=== PATIENT | female | born 1990 | race Caucasian/White ===

== ENCOUNTER → 2018-03-02 | Outpatient (CLI) | payer OTHER ==
[~2018-03-02] MED LIST: ABAT250V; BCP; CITA20 PO; CYCL10 PO; DOXY100 PO; ESOM20; FLUO10 PO; HYDACE5 PO; IBUP600 PO; IBUP800 PO; LABE100 PO; ORTHOTRYCYCLINE; OXYACE5T PO; PANT20 PO; Pepto-Bism525 MG/15; Prilosec Otc20 MG; RXPROACE PO; SERT50 PO; Verotin-Gr Cap1 EACH PO; [UNRECOGNIZED DRUG - REMARK]
== END | disposition home or self-care (01) ==
LOC: LAB 15:48 → LAB SHORT 15:48
DX: R30.0 Dysuria (principal)
CPT/HCPCS: 87086

== ENCOUNTER 2018-07-25 17:42 | Emergency (ER) | payer OTHER, BC, SELFPAY ==
[~2018-07-25] VITALS: Ht 167.6 cm; Wt 72.6 kg
[2018-07-25] MEDS ORDERED: Robaxin500 MG PO (18:42)
== END 2018-07-25 18:45 | disposition home or self-care (01) ==
LOC: ER 17:42
DX: M54.2 Cervicalgia (principal); F41.9 Anxiety disorder, unspecified; Z79.899 Other long term (current) drug therapy; V43.52XA Car driver injured in collision with other type car in traffic accident, initial encounter
CPT/HCPCS: 72040; 99284-25

== ENCOUNTER → 2019-07-22 | Outpatient (CLI) | payer BC, OTHER ==
[~2019-07-22] MED LIST changes: +Robaxin500 MG PO
[2019-07-22 17:24] LABS: BASOPHILS ABSOLUTE AUTO 0.02 K/mm3 (0.00-0.23); BASOPHILS PERCENT AUTO 0 % (0-2); EOSINOPHILS PERCENT AUTO 2 % (0-6); Hematocrit 44.6 % (33.0-51.0); Hemoglobin 14.5 g/dL (11.5-16.0); IMMATURE GRAN ABSOLUTE AUTO 0.02 K/mm3 (0.00-0.10); IMMATURE GRAN PERCENT AUTO 0 % (0-1); LYMPHOCYTES ABSOLUTE AUTO 0.84 K/mm3 (0.84-5.20); LYMPHOCYTES PERCENT AUTO 13 % (21-46); MONOCYTES ABSOLUTE AUTO 0.43 K/mm3 (0.16-1.47); MONOCYTES PERCENT AUTO 7 % (4-13); Mean Corpuscular HGB 29.1 pg (26.0-34.0); Mean Corpuscular HGB Conc 32.5 g/dL (31.5-36.5); Mean Corpuscular Volume 90 fL (80-100); Mean Platelet Volume 11.9 fL (9.1-12.4); NEUTROPHILS ABSOLUTE AUTO 4.84 K/mm3 (1.96-9.15); NEUTROPHILS PERCENT AUTO 78 % (41-73); Platelet Count 238 K/mm3 (150-400); RDW Coefficient Variation 13.5 % (11.7-14.2); Red Blood Cell Count 4.98 M/mm3 (3.80-5.20); White Blood Cell Count 6.25 K/mm3 (4.00-11.30)
[2019-07-22 17:49] LABS: Alanine Aminotransfer (ALT/SGP 24 U/L (12-78); Albumin, Blood 3.6 g/dL (3.4-5.0); Albumin/Globulin Ratio 0.9 (0.8-1.8); Alk Phos 55 U/L (50-136); Anion Gap 3 mmol/L (6-16); Aspartate Aminotrans (AST/SGOT 19 U/L (12-37); Bilirubin, Total 0.4 mg/dL (0.1-1.0); Blood Urea Nitrogen 10 mg/dL (8-24); Bun/Creatinine Ratio 13.7 (12.0-20.0); CO2, Blood 26 mmol/L (21-32); Calcium, Blood 9.2 mg/dL (8.5-10.1); Chloride, Blood 108 mmol/L (98-108); Creatinine, Blood 0.73 mg/dL (0.40-1.00); Globulin, Blood 3.9 g/dL (2.2-4.0); Glomerular Filtration Rate >60 (60-); Glucose, Blood 77 mg/dL (70-99); Potassium, Blood 3.6 mmol/L (3.5-5.5); Sodium, Blood 137 mmol/L (136-145); Total Protein, Blood 7.5 g/dL (6.4-8.2)
== END | disposition home or self-care (01) ==
LOC: LAB 17:00 → LAB SHORT 17:00
PROVIDERS: Nurse Practitioner
DX: R10.9 Unspecified abdominal pain (principal)
CPT/HCPCS: 80053; 83690; 85025

== ENCOUNTER → 2019-10-18 | Outpatient (CLI) | payer BC, OTHER | END | disposition home or self-care (01) | LOC: LAB SHORT 16:30 → LAB 16:30 | PROVIDERS: Obstetrics & Gynecology | DX: Z01.419 Encounter for gynecological examination (general) (routine) without abnormal findings (principal) | CPT/HCPCS: G0123 ==

== ENCOUNTER → 2019-10-19 | Outpatient (CLI) | payer BC, OTHER ==
[2019-12-28 11:42] LABS: DIAGNOSIS: SEE LABOUT RESULTS
== END | disposition home or self-care (01) ==
LOC: LAB SHORT 13:10 → LAB 13:10
PROVIDERS: Obstetrics & Gynecology
DX: Z01.419 Encounter for gynecological examination (general) (routine) without abnormal findings (principal)
CPT/HCPCS: G0123

== ENCOUNTER → 2021-01-07 | Outpatient (CLI) | payer BC ==
[2021-01-09 13:11] LABS: HPV 16 Negative (Negative); HPV 18 Negative (Negative); HPV OTHER HR TYPES Negative (Negative)
== END | disposition home or self-care (01) ==
LOC: LAB 16:42 → LAB SHORT 16:42
PROVIDERS: Obstetrics & Gynecology
DX: R87.610 Atypical squamous cells of undetermined significance on cytologic smear of cervix (ASC-US) (principal)
CPT/HCPCS: 87624; 88142

== ENCOUNTER → 2021-05-22 | Outpatient (CLI) | payer BC, OTHER | END | disposition home or self-care (01) | LOC: LAB SHORT 18:30 | DX: R21 Rash and other nonspecific skin eruption (principal) | CPT/HCPCS: 87070 ==

== ENCOUNTER 2022-12-23 07:52 | Inpatient (IN) | payer BC ==
[~2022-12-23] VITALS: Ht 167.6 cm; Wt 70.5 kg
[2022-12-23] VITALS (32 sets, daily range): BP systolic 81–160; BP diastolic 47–95
[2022-12-23] MEDS ORDERED: BUPR100 PO (08:46)
[2022-12-23 09:00] LABS: BASOPHILS ABSOLUTE AUTO 0.02 K/mm3 (0.00-0.23); BASOPHILS PERCENT AUTO 0 % (0-2); EOSINOPHILS ABSOLUTE AUTO 0.12 K/mm3 (0.00-0.68); EOSINOPHILS PERCENT AUTO 1 % (0-6); Hematocrit 36.8 % (33.0-51.0); Hemoglobin 12.5 g/dL (11.5-16.0); IMMATURE GRAN ABSOLUTE AUTO 0.04 K/mm3 (0.00-0.10); IMMATURE GRAN PERCENT AUTO 1 % (0-1); LYMPHOCYTES ABSOLUTE AUTO 1.32 K/mm3 (0.84-5.20); LYMPHOCYTES PERCENT AUTO 15 % (21-46); MONOCYTES ABSOLUTE AUTO 0.61 K/mm3 (0.16-1.47); MONOCYTES PERCENT AUTO 7 % (4-13); Mean Corpuscular HGB 29.2 pg (26.0-34.0); Mean Corpuscular Volume 86 fL (80-100); Mean Platelet Volume 12.4 fL (9.1-12.4); NEUTROPHILS PERCENT AUTO 76 % (41-73); Platelet Count 202 K/mm3 (150-400); RDW Coefficient Variation 13.4 % (11.7-14.2); RDW Standard Deviation 41.3 fL (35.1-46.3); Red Blood Cell Count 4.28 M/mm3 (3.80-5.20); White Blood Cell Count 8.81 K/mm3 (4.00-11.30)
--- NOTE | 2022-12-23 16:22 | NUR ---
LEFT LEG STILL NUMB, PT CANNOT LIFT UP OFF BED.
[2022-12-24 03:08] VITALS: BP 111/64
[2022-12-24 06:07] LABS: BASOPHILS ABSOLUTE AUTO 0.02 K/mm3 (0.00-0.23); BASOPHILS PERCENT AUTO 0 % (0-2); EOSINOPHILS ABSOLUTE AUTO 0.15 K/mm3 (0.00-0.68); EOSINOPHILS PERCENT AUTO 2 % (0-6); Hematocrit 31.8 % (33.0-51.0); Hemoglobin 10.4 g/dL (11.5-16.0); IMMATURE GRAN ABSOLUTE AUTO 0.03 K/mm3 (0.00-0.10); IMMATURE GRAN PERCENT AUTO 0 % (0-1); LYMPHOCYTES ABSOLUTE AUTO 1.74 K/mm3 (0.84-5.20); LYMPHOCYTES PERCENT AUTO 19 % (21-46); MONOCYTES ABSOLUTE AUTO 0.81 K/mm3 (0.16-1.47); MONOCYTES PERCENT AUTO 9 % (4-13); Mean Corpuscular HGB 28.7 pg (26.0-34.0); Mean Corpuscular HGB Conc 32.7 g/dL (31.5-36.5); Mean Corpuscular Volume 88 fL (80-100); Mean Platelet Volume 12.6 fL (9.1-12.4); NEUTROPHILS ABSOLUTE AUTO 6.34 K/mm3 (1.96-9.15); NEUTROPHILS PERCENT AUTO 70 % (41-73); Platelet Count 176 K/mm3 (150-400); RDW Coefficient Variation 13.3 % (11.7-14.2); RDW Standard Deviation 42.7 fL (35.1-46.3); Red Blood Cell Count 3.62 M/mm3 (3.80-5.20); White Blood Cell Count 9.09 K/mm3 (4.00-11.30)
[2022-12-24 09:03] VITALS: BP 130/63
[2022-12-24 12:39] VITALS: BP 114/75
--- NOTE | 2022-12-24 14:15 | NUR ---
BANDS MATCHED. PT TO DISCHARGE HOME WITH AND .
[2022-12-24 14:16] VITALS: BP 122/78
== END 2022-12-24 14:25 | disposition home or self-care (01) | DRG 807 ==
LOC: OBS 07:52 → BC 07:52 → OBS 08:28 → BC 08:28
PROVIDERS: ADMIT Obstetrics & Gynecology
PROC: 10E0XZZ Delivery of Products of Conception, External Approach (ICD-10-PCS; principal; 2022-12-23)
DX: O99.344 Other mental disorders complicating childbirth (principal); Z37.0 Single live birth; F41.9 Anxiety disorder, unspecified; Z90.49 Acquired absence of other specified parts of digestive tract; Z98.890 Other specified postprocedural states; Z79.899 Other long term (current) drug therapy; Z67.40 Type O blood, Rh positive; Z3A.39 39 weeks gestation of pregnancy
CPT/HCPCS: 36415; 51702; 85025; 86850; 86900; 86901; J1885; J2590; J7120